=== PATIENT | male | born 1970 | race Two or more races ===

== ENCOUNTER 2025-01-07 20:22 | Emergency (ER) | payer MEDICAID, SELFPAY ==
[2025-01-07 20:25] VITALS: BMI 27.3
[2025-01-07 20:38] VITALS: BP 160/84; PULSE 88; RESP 18; TEMP 36.9; O2SAT 99
--- NOTE | 2025-01-07 21:03 | PD.EDADULT ---
ED General RME/HPI General Chief complaint: General Adult/Misc Complain Stated complaint: PUT FUNGI NAIL DROPPS IN R EYE YESTERDAY Time Seen by Provider: 01/07/25 20:27 Arrival date/time: 01/07/25 20:22 This is a 55-year-old male that comes into the emergency room with complaints of accidentally putting fungal nail drops into his right eye yesterday. 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 Patient states he accidentally put the fungal drops in his right eye patient states that he noticed it right away because it burned. Patient irrigated his eye thoroughly. And also got some [id number] cleansing drops and put in his eye as well. Patient states his eyes been burning. Patient denies any other complaints. Related Data Previous Rx's ?Medication ?Instructions ?Recorded naproxen 375 mg tablet 375 mg PO BIDWM PRN pain #25 tabs 06/02/17 Allergies Allergy/AdvReac Type Severity Reaction Status Date / Time NKA* Allergy Uncoded 01/07/25 20:30 Review of Systems Review of Systems Systems Reviewed: All systems reviewed, normal except as documented Past Medical History Past Medical History Comments PMH COMMENT: Denies ED Exam Narrative Physical exam: VITAL SIGNS: Reviewed. GENERAL APPEARANCE: Alert and interactive, follows commands, no acute distress HEAD AND FACE: Non-traumatic. ENT: PERRL, Mucous membrane moist. Inflammation in the right conjunctivo-. No eyelid swelling NECK: Supple, nontender, no nuchal rigidity. CHEST: No tenderness, no crepitus, no paradoxical movement, no retractions. LUNGS: breathing even and unlabored HEART: Regular rate, cap refill less than 2 seconds ABDOMEN: Soft, nondistended, no guarding, nontender, no rebound, no masses, NEUROLOGICAL: Gross motor function intact sensory function intact, Appropriate for age. MUSCULOSKELETAL: low back nontender, full range of motion. EXTREMITIES: No redness no swelling no skin breakdown on bilateral foot and leg. Distal neurovascular status intact bilateral foot SKIN: Color pink, dry, no rash, no lacerations, no abrasions, no contusions. Course Quality Measures none Orders Category Date Time Status ED Eye Irrigation ONCE Care 01/07/25 21:26 Completed Visual Acuity NOW Care 01/07/25 21:00 Completed Pradhan Lamp to Bedside X1 Care 01/07/25 21:00 Completed Erythromycin Op Oint 0.5% Med 01/07/25 22:08 Discontinued 1 gm RIGHT EYE X1 ONE Fluorescein Sodium [Bio-Negar] Med 01/07/25 21:00 Discontinued 1 mg RIGHT EYE X1 ONE TETRACAINE Op Irene 0.5% [Pontocaine Op Irene 0.5%] Med 01/07/25 21:02 Discontinued 1 drop RIGHT EYE X1 ONE Vital Signs Vital signs: Vital Signs Temperature 98.5 F 01/07/25 20:38 Pulse Rate 88 01/07/25 20:38 Respiratory Rate 18 01/07/25 20:38 Blood Pressure 160/84 H 01/07/25 20:38 Pulse Oximetry (%) 99 01/07/25 20:38 PROCEDURES: Pradhan Lamp Exam Right eye: Flourescein uptake:: Yes Pradhan Lamp Findings: Other (I assessed patient's eye with Pradhan lamp and fluorescein. No corneal abrasion seen. Patient does however have PTERYGIUM and has had that for a while. It is at a 3 o'clock position and it does not cover the iris. ) Discharge Plan Plan Patient Disposition: HOME (Self Care) Patient condition on transfer: Stable Prescriptions/Referrals Prescriptions/Med Rec: No Action naproxen 375 MG tablet 375 mg PO BIDWM PRN (Reason: pain) Qty: 25 0RF Referrals: Wood Ingram PA-C [Primary Care Provider] - In 1 week Problem List Clinical Impression: Corneal irritation of right eye, Conjunctivitis Patient/Caregiver Discharge Instructions Discharge Activity: activity as tolerated Education Materials: ED Conjunctivitis, Nonspecific Additional Instructions: Please make an appointment with eye doctor as soon as possible. Come back to the emergency room symptoms change or worsen. Print Language: Amharic Stand Alone Forms: Arlyn Award Info., Patient Portal Info Letter PA/SALES CLOSER Supervising Physician PA/SALES CLOSER Supervising Physician: DEQUAN MILLS Narrative MDM hospital course: Nurse called poison control. They recommended to have pH checked and if not neutral to irrigate eye with Scott lens. They also recommended to assess patient's eye for corneal abrasion. We irrigated patient's eye with Scott lens with 500 mL of isotonic fluid. I assessed patient's eye with Pradhan lamp and fluorescein. No corneal abrasion seen. Patient does however have PTERYGIUM and has had that for a while. It is at a 3 o'clock position and it does not cover the iris. Patient tolerated eye exam. I explained to patient at length the importance of following up with ophthalmology. I discussed case with Dr. Parikh. No further recommendations at this time other than having patient follow-up with supercharge repair supervisor. I will send patient home with gentamicin drops. I will give patient a dose of erythromycin ointment for now. Patient told to come back to the emergency room symptoms change or worsen. Clinical Information Provided by patient Medical Records Reviewed None Meds/Rx Considered, not Ordered None Labs/Rad/Tests considered, not Ordered None Lab Interpretation Labs: none Imaging Imaging interpretation: none Medication Administration(s) none Medication Administration History Discontinued Medications Erythromycin (Erythromycin Op Oint 0.5% 1 Gm Packet) 1 gm RIGHT EYE X1 ONE Stop: 01/07/25 22:09 Last Admin: 01/07/25 22:21 Dose: 1 gm Documented By: CHERELLE Co-signed By: EF Fluorescein Sodium (Fluorescein Sod 1 Mg Strp) 1 mg RIGHT EYE X1 ONE Stop: 01/07/25 21:01 Tetracaine HCl (Tetracaine Pf Op Irene 0.5% 4 Ml Drpette) 1 drop RIGHT EYE X1 ONE Stop: 01/07/25 21:03 See ADELINE Dispositon Disposition: Discharge Home
--- NOTE | 2025-01-07 21:36 | PC.NURSE ---
Per Poison Control [place] recommendations:1 check for ph for neutrality-irrigate if ph is high 2: check for corneal abrasion,
[2025-01-07] MEDS: Erythromycin Op Oint 0.5% 1 GM PACKET RIGHT EYE (22:21)
== END 2025-01-07 22:24 | disposition home or self-care (01) ==
PROVIDERS: Emergency Provider Emergency Medicine; PCP Physician Assistant
DX: H10.9 Unspecified conjunctivitis (principal)
CPT/HCPCS: 99284; A9270